=== PATIENT | male | born 1970 | race Caucasian/White ===

== ENCOUNTER 2021-09-27 14:01 | Inpatient (IN) | payer OTHER ==
[~2021-09-27] VITALS: Ht 167.6 cm; Wt 84.8 kg
[2021-09-27 14:27] VITALS: BP_SYST 139
--- NOTE | 2021-09-27 14:33 | NUR ---
PLACED IN BED 4
--- NOTE | 2021-09-27 14:40 | NUR ---
PT BIB BROTHER C/O ABD DISTENTION STARTING THIS MORNING. PT REPORTS RECENTLY STARTING DIALYSIS AND HAS ACCESS TO RIGHT UPPER CHEST. PT DESCRIBES FEELING UNCOMFORTABLE WITH FULLNESS BUT DENIES PAIN. PT IS AMBULATORY, AAOX4, V/S STABLE
--- NOTE | 2021-09-27 14:50 | NUR ---
ER DR. JACKSON AT THE BEDSIDE
[2021-09-27] MEDS ORDERED: FUROSEMIDE 40 MG/4 ML VIAL IVP ONE (15:00)
--- NOTE | 2021-09-27 15:02 | NUR ---
# 20 gauge angiocath placed to LAC. Use of asceptic technique. Opsite placed over site. Blood return noted. Blood for lab drawn from site. Flushed with 10 cc of normal saline. No evidence of infiltration noted. Patient tolerated well.
[2021-09-27 15:20] LABS: BASOPHILS # (AUTO) 0.1 K/uL (0.0-0.2); BASOPHILS % (AUTO) 0.9 % (0.0-2.0); EOSINOPHILS # (AUTO) 0.3 K/uL (0.0-0.4); EOSINOPHILS % (AUTO) 4.3 % (0.0-4.0); HEMATOCRIT 25.1 % (36-54); HEMOGLOBIN 8.5 g/dL (14.0-18.0); LYMPHOCYTES # (AUTO) 0.9 K/uL (1.0-5.5); LYMPHOCYTES % (AUTO) 13.3 % (20.5-51.5); MEAN CORPUSCULAR HEMOGLOBIN 30 pg (27-31); MEAN CORPUSCULAR HGB CONC 34 % (32-36); MEAN CORPUSCULAR VOLUME 88 fL (79.0-98.0); MONOCYTES # (AUTO) 0.8 K/uL (0.0-1.0); MONOCYTES % (AUTO) 12.3 % (1.7-9.3); NEUTROPHILS # (AUTO) 4.7 K/uL (1.8-7.7); NEUTROPHILS % (AUTO) 69.2 % (40.0-70.0); PLATELET COUNT (AUTO) 310 K/uL (130-430); RED BLOOD CELL COUNT(AUTO) 2.86 MIL/uL (4.2-6.2); RED CELL DISTRIBUTION WIDTH 14.4 % (9.0-15.0); WHITE BLOOD COUNT (AUTO) 6.8 K/uL (4.8-10.8)
[2021-09-27 15:40] LABS: CALCIUM 8.1 mg/dL (8.4-11.0); CREATININE 4.01 mg/dL (0.55-1.30); POTASSIUM 4.4 mmol/L (3.5-5.1)
[2021-09-27 15:46] LABS: ALBUMIN 2.4 g/dL (3.4-4.8); TOTAL BILIRUBIN 0.2 mg/dL (0.0-1.0)
[2021-09-27] MEDS ORDERED: ALBUMIN HUMAN 25% 50 ML IV ONE (16:15)
[2021-09-27 16:23] LABS: INR 1.1 (0.80-1.20); PROTHROMBIN TIME 11.5 SECS (9.5-12.5)
--- NOTE | 2021-09-27 16:41 | NUR ---
CONSENT SIGNED FOR MEDICAL RECORDS FROM [facility]
[2021-09-27] MEDS ORDERED: ONDANSETRON HCL 4 MG/2 ML VIAL IVP PRN (17:30)
[2021-09-27] MEDS ORDERED: HYDR-4039 PO (17:40)
[2021-09-27] MEDS ORDERED: CARV25TA55 PO (17:40)
[2021-09-27] MEDS ORDERED: FOLI0.8T42 PO (17:40)
[2021-09-27] MEDS ORDERED: NIFE60TA83 PO (17:40)
--- NOTE | 2021-09-27 17:41 | NUR ---
Medication reconciliation completed with information provided by PT. Any prior medication reconciliation on file was reviewed and corrected.
--- NOTE | 2021-09-27 18:05 | NUR ---
PT PROVIDED WITH URINAL, STATES HE CANNOT VOID AT THIS TIME, WILL CONTINUE TO ENCOURAGE
--- NOTE | 2021-09-27 18:10 | NUR ---
ULTRASOUND AT THE BEDSIDE
--- NOTE | 2021-09-27 18:23 | NUR ---
DINNER TRAY PROVIDED TO PT
--- NOTE | 2021-09-27 19:35 | NUR ---
Patient will be admitted to care of JAYA. Admitted to MS unit. Will go to room 108B. Belongings list completed. Complete and up to date summary report printed. SBAR report to be given at bedside with opportunity for questions.
[2021-09-27 19:58] VITALS: BP_SYST 147
--- NOTE | 2021-09-28 | NUR ---
ADMISSION: The patient, KELECHI CHRISTIANSON, 51 y/o, M admitted by [facility] MD, was given written information regarding hospital policies, unit procedures and contact persons. Valuables were checked and procedures explained SAFETY MEASURES IMPLEMENTED ALSO CALL TORRES GIVEN TO Patient / .
[2021-09-28 00:40] VITALS: BP_SYST 145
--- NOTE | 2021-09-28 02:26 | NUR ---
Consultation Paged Reason for Consultation: ANASARCA Was consult called: Y Person who was notified: Shanti Consulting Physician: Yamel Henson Ordering Physician: Dr. August
--- NOTE | 2021-09-28 02:37 | NUR ---
MRSA of NARES collected & sent to Lab .
[2021-09-28 06:45] LABS: BASOPHILS # (AUTO) 0.1 K/uL (0.0-0.2); BASOPHILS % (AUTO) 1.3 % (0.0-2.0); EOSINOPHILS # (AUTO) 0.3 K/uL (0.0-0.4); EOSINOPHILS % (AUTO) 4.1 % (0.0-4.0); HEMOGLOBIN 8.2 g/dL (14.0-18.0); LYMPHOCYTES # (AUTO) 0.9 K/uL (1.0-5.5); LYMPHOCYTES % (AUTO) 12.1 % (20.5-51.5); MEAN CORPUSCULAR HEMOGLOBIN 30 pg (27-31); MEAN CORPUSCULAR HGB CONC 34 % (32-36); MEAN CORPUSCULAR VOLUME 88 fL (79.0-98.0); MONOCYTES # (AUTO) 0.8 K/uL (0.0-1.0); MONOCYTES % (AUTO) 10.6 % (1.7-9.3); NEUTROPHILS # (AUTO) 5.3 K/uL (1.8-7.7); NEUTROPHILS % (AUTO) 71.9 % (40.0-70.0); PLATELET COUNT (AUTO) 308 K/uL (130-430); RED BLOOD CELL COUNT(AUTO) 2.73 MIL/uL (4.2-6.2); RED CELL DISTRIBUTION WIDTH 14.2 % (9.0-15.0); WHITE BLOOD COUNT (AUTO) 7.4 K/uL (4.8-10.8)
--- NOTE | 2021-09-28 07:20 | NUR ---
rn opening note report was endorsed by night nurse. patient appears to be resting with both eyes closed no signs of any distress, breathing is equal and non labored. all safety precautions in place.
[2021-09-28 07:32] LABS: ALBUMIN 2.3 g/dL (3.4-4.8); CALCIUM 8.3 mg/dL (8.4-11.0); CREATININE 4.54 mg/dL (0.55-1.30); POTASSIUM 4.1 mmol/L (3.5-5.1); TOTAL BILIRUBIN 0.2 mg/dL (0.0-1.0)
[2021-09-28 08:00] VITALS: BP_SYST 151
--- NOTE | 2021-09-28 09:12 | NUR ---
PATIENT IS AWAKE AND ALERT SITTING IN BED, NO SIGNS OF ANY DISTRESS, BREATHING IS EQUAL AND NON LABORED. ALL SAFETY PRECAUTIONS IN PLACE. EDUCATED BODY COVERER LIGHT FOR ASSISTANCE. CALL LIGHT IS WITH PATIENT. NO OTHER NEEDS AT THIS TIME.
--- NOTE | 2021-09-28 10:30 | NUR ---
dr. garcia spoke with md received orders for hemodialysis md will call hemodialysis nurse. patient is awake and alert consent signed and in chart. patient educated solution advisor light for assistance call light is with him. patient has no complaints or need at this time.
[2021-09-28 11:28] VITALS: BP_SYST 140
--- NOTE | 2021-09-28 14:42 | NUR ---
HIGH ALERT NOTE: Called Dr. garcia back at telephone identified within the medical roster to verify physician authenticity. orders for heparin for ports for hemodialysis
[2021-09-28] MEDS ORDERED: HEPARIN SODIUM,PORCINE 5,000 UNITS/ML VIAL IVP ONE (14:45)
[2021-09-28 15:30] VITALS: BP_SYST 167
--- NOTE | 2021-09-28 15:46 | NUR ---
hemodialysis patient just finished hemodialysis 3 L removed. patient states he is tired and would like to rest. no other needs at this time. call light is with him educated to use for assistance.
--- NOTE | 2021-09-28 16:10 | NUR ---
spoke with md alejo to continue home medication, SCD for dvt prophylaxis.
[2021-09-28] MEDS: CALCIUM ACETATE 667 MG CAP PO SCH (17:28)
--- NOTE | 2021-09-28 18:21 | NUR ---
rn closing note patient is laying in bed, no complaints at this time. patient has call light with him educated to use for assistance. Patient shows no signs of any distress. no other needs a this time.
--- NOTE | 2021-09-28 19:00 | NUR ---
PATIENT RECEIVED IN BED ALERT AND ORIENTED X4. FALL AND SAFETY INTERVENTIONS MAINTAINED. PATIENT EDUCATED TO MEDICAL PLAN OF CARE. FALL AND SAFETY INTERVENTIONS, MEDICATION MANAGEMENT AND EDUCATIONAL NEEDS. MEDICAL DIAGNOSIS ANASARCA NOTED. EDEMA TO UPPER EXTREMITIES NOTED. PATIENT CONTINENT OF URINARY VOID WITH EDUARDO URINE IN URINAL AT BEDSIDE. RIGHT CHEST EVON CATH NOTED. DIALYSIS SCHEDULED IN AM. PATIENT RECEPTIVE TO FALL AND SAFETY INTERVENTIONS, MEDICAL MANAGEMENT AND RN PLAN OF CARE.
[2021-09-28] MEDS: hydrALAZINE HCL 25 MG TABLET PO SCH (21:05)
[2021-09-28] MEDS: HYDROcodone/ACETAMIN 5-325 MG TAB (NORCO/ VICODIN) PO PRN (21:07)
[2021-09-29] VITALS (9 sets, daily range): BP systolic 141–200
[2021-09-29] MEDS ORDERED: hydrALAZINE HCL 20 MG/ML VIAL IVP ONE ×2 (02:45)
[2021-09-29] MEDS: CALCIUM ACETATE 667 MG CAP PO SCH ×3 (08:33→17:55)
[2021-09-29] MEDS: hydrALAZINE HCL 25 MG TABLET PO SCH ×2 (08:33→21:11)
[2021-09-29] MEDS: CARVEDILOL 25 MG TABLET (COREG) PO SCH (08:33)
[2021-09-29] MEDS: NEPHROVITE, (FOLIC ACID/VITAMIN B COMP W-C 1 TAB) PO SCH (08:33)
[2021-09-29] MEDS: NIFEdipine 30 MG TAB.ER.24 PO SCH (08:34)
[2021-09-29] MEDS ORDERED: amLODIPine BESYLATE 5 MG TABLET PO SCH (09:00)
[2021-09-29] MEDS ORDERED: NEPHROVITE, (FOLIC ACID/VITAMIN B COMP W-C 1 TAB) PO SCH (09:00)
--- NOTE | 2021-09-29 14:00 | NUR ---
0720AM: PATIENT IS RESTING IN BED QUIETLY. NO ADDITIONAL DISTRESS NOTED. BED IN LOW AND LOCK POSITION. BED ALARM ON. CALL LIGHT WITHIN REACH. STABLE CONDITION. WILL CONT TO MONITOR. 0800AM: EXPLAINED PLAN OF CARE AND PATIENT VERBALIZED UNDERSTANDING. WILL CONT TO MONITOR. 0900AM: TOILETRIES GIVEN TO PATIENT TO BRUSH HIS TEETH AND WASHED HIS FACE. PATIENT IS ABLE TO DO SELF CARE IN THE BED. 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 WILL CONT TO MONITOR. 1200PM: PATIENT IS RESTING IN BED EATING HIS LUNCH. STABLE AT THIS TIME. WILL CONT TO MONITOR. 1400: PATIENT IS RESTING IN BED ASLEEP. WILL CONT TO MONITOR.
--- NOTE | 2021-09-29 14:52 | NUR ---
Dietitian Recommendations * Renal, CCHO, gluten-free, lactose-free diet * FRAN provided renal/diabetic MNT LP, RD Please refer to Nutrition Assessment for details. Addendum: 09/29/21 at [address] Amended: Links added.
--- NOTE | 2021-09-29 18:00 | NUR ---
1600: PATIENT IS RESTING IN BED TALKING ON THE PHONE WITH HIS FAMILY. MADE AWARE TO PATIENT THAT HD WILL BE DONE TOMORROW INSTEAD OF TODAY. NO CHANGE FROM PREVIOUS ASSESSMENT. WILL CONT TO MONITOR. 1800: PATIENT IS RESTING IN BED LISTENING TO THE NEWS AND EATING HIS DINNER. WILL CONT TO MONITOR.
--- NOTE | 2021-09-29 18:50 | NUR ---
PATIENT IS RESTING IN BED WATCHING TV. NO ADDITIONAL DISTRESS. STABLE CONDITION THROUGHOUT THE SHIFT. WILL CONT TO MONITOR.
[2021-09-30 01:21] VITALS: BP_SYST 142
[2021-09-30 04:00] VITALS: BP_SYST 138
[2021-09-30 08:00] VITALS: BP_SYST 156
[2021-09-30] MEDS: CALCIUM ACETATE 667 MG CAP PO SCH ×3 (10:05→18:58)
[2021-09-30] MEDS: NEPHROVITE, (FOLIC ACID/VITAMIN B COMP W-C 1 TAB) PO SCH (10:05)
[2021-09-30] MEDS: CARVEDILOL 25 MG TABLET (COREG) PO SCH (10:06)
[2021-09-30 12:34] VITALS: BP_SYST 159
[2021-09-30] MEDS: NIFEdipine 30 MG TAB.ER.24 PO SCH (13:07)
[2021-09-30] MEDS: hydrALAZINE HCL 25 MG TABLET PO SCH ×2 (13:07→20:13)
[2021-09-30 16:53] VITALS: BP_SYST 150
[2021-09-30] MEDS ORDERED: EPOETIN ALFA-EPBX 10,000 UNITS/ML VIAL SUBCUT SCH (17:00)
--- NOTE | 2021-09-30 18:30 | NUR ---
0710AM: PATIENT IS RESTING IN BED QUIETLY. NO ADDITIONAL DISTRESS NOTED. BED IN LOW AND LOCK POSITION. BED ALARM ON. CALL LIGHT WITHIN REACH. STABLE CONDITION. WILL CONT TO MONITOR. 0800AM: EXPLAINED PLAN OF CARE AND PATIENT VERBALIZED UNDERSTANDING. HD WILL BE DONE TODAY. WILL CONT TO MONITOR. 0900AM: TOILETRIES GIVEN TO PATIENT TO BRUSH HIS TEETH AND WASHED HIS FACE. GOWN ALSO CHANGED. PATIENT IS ABLE TO DO SELF CARE IN THE BED. 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 WILL CONT TO MONITOR. 1200PM: PATIENT IS RESTING IN BED EATING HIS LUNCH. STABLE AT THIS TIME. WILL CONT TO MONITOR. 1400: PATIENT IS RESTING IN BED ASLEEP. WILL CONT TO MONITOR. 1600: PATIENT IS RESTING IN BED TALKING IN THE PHONE WITH HIS FRIEND. NO ADDITIONAL DISTRESS NOTED. 1800: PATIENT IS RESTING IN BED EATING HIS DINNER. WILL CONT TO MONITOR. 1830: NO CHANGE FROM PREVIOUS ASSESSMENT. STABLE CONDITION THROUGHOUT THE SHIFT. NO ADDITIONAL DISTRESS NOTED. WILL CONT TO MONITOR.
--- NOTE | 2021-09-30 19:15 | NUR ---
OPENING NOTE REPORT RECEIVED FROM DAYSHIFT NURSE. PATIENT RECEIVED LYING IN BED, AWAKE, NO S/S OF ACUTE DISTRESS. BREATHING IS EVEN AND UNLABORED. IV SITE IS PATENT, NO SIGNS OF INFILTRATION OR INFECTION NOTED. CALL LIGHT WITH PATIENT. BED IS LOCKED AND AT LOWEST POSITION. WILL CONTINUE TO MONITOR.
[2021-09-30] MEDS: HYDROcodone/ACETAMIN 5-325 MG TAB (NORCO/ VICODIN) PO PRN (19:56)
[2021-09-30 20:00] VITALS: BP_SYST 152
--- NOTE | 2021-09-30 21:30 | NUR ---
DIALYSIS PATIENT IN BED, RECEIVING DIALYSIS. TOLERATING WELL. CALL LIGHT WITH PATIENT. WILL CONTINUE TO MONITOR.
[2021-09-30] MEDS ORDERED: HEPARIN SODIUM,PORCINE 5,000 UNITS/ML VIAL IVP ONE ×2 (23:00)
[2021-10-01] VITALS: BP_SYST 148
--- NOTE | 2021-10-01 01:42 | NUR ---
ROUNDS PATIENT IN BED, ASLEEP. NO SIGNS OF DISCOMFORT. CALL LIGHT WITH PATIENT. WILL CONTINUE TO MONITOR.
--- NOTE | 2021-10-01 06:27 | NUR ---
ROUNDS PATIENT IN BED, AWAKE, WATCHING TV, NO S/S OF ACUTE DISTRESS NOTED. BREATHING EVEN AND UNLABORED. IV SITE IS PATENT, NO SIGNS OF INFILTRATION OR INFECTION NOTED. ALL NEEDS MET THROUGHOUT SHIFT. FALL, SAFETY PRECAUTIONS MAINTAINED THROUGHOUT SHIFT. WILL CONTINUE TO MONITOR UNTIL PATIENT CARE IS ENDORSED TO ONCOMING DAYSHIFT NURSE.
[2021-10-01 08:00] VITALS: BP_SYST 130
[2021-10-01] MEDS: CALCIUM ACETATE 667 MG CAP PO SCH ×2 (08:37→12:38)
[2021-10-01] MEDS: NEPHROVITE, (FOLIC ACID/VITAMIN B COMP W-C 1 TAB) PO SCH (08:38)
[2021-10-01] MEDS: NIFEdipine 30 MG TAB.ER.24 PO SCH (08:50)
[2021-10-01] MEDS: CARVEDILOL 25 MG TABLET (COREG) PO SCH (08:50)
[2021-10-01] MEDS: hydrALAZINE HCL 25 MG TABLET PO SCH (08:50)
[2021-10-01] MEDS ORDERED: PHO667 PO (09:45)
[2021-10-01 10:26] VITALS: BP_SYST 130
[2021-10-01 12:37] VITALS: BP_SYST 148
--- NOTE | 2021-10-01 15:30 | NUR ---
SHIFT NOTES 0720AM: PATIENT IS RESTING IN BED QUIETLY. NO ADDITIONAL DISTRESS NOTED. BED IN LOW AND LOCK POSITION. BED ALARM ON. CALL LIGHT WITHIN REACH. STABLE CONDITION. WILL CONT TO MONITOR. 0800AM: EXPLAINED PLAN OF CARE AND PATIENT VERBALIZED UNDERSTANDING. HD WILL BE DONE TODAY. WILL CONT TO MONITOR. 0900AM: TOILETRIES GIVEN TO PATIENT TO BRUSH HIS TEETH AND WASHED HIS FACE. PATIENT IS ABLE TO DO SELF CARE IN THE BED. 1000AM: PATIENT IS RESTING IN BED TALKING IN THE PHONE WITH HIS FRIED. WILL CONT TO MONITOR. 1030AM: MADE AWARE TO PATIENT THAT HE IS BEING DC TODAY. PER PATIENT, HIS PARENTS WILL PICK HIM UP. PATIENT WILL CALL HIS PARENTS. 1100AM: PER PATIENT, HIS PARENTS WILL PICK HIM UP AT 1500 TODAY. 1200PM: DC INSTRUCTION GIVEN AND EXPLAINED. PATIENT VERBALIZED UNDERSTANDING. STABLE AT THIS TIME. WILL CONT TO MONITOR. 1400: PATIENT IS RESTING IN BED ASLEEP. WILL CONT TO MONITOR. 1500: PATIENT IS CHANGING HIS CLOTHES. HIS FRIEND IS AT THE BEDSIDE. WILL CONT TO MONITOR. 1515: FRIENDS LEFT THE UNIT. 1520: PARENTS IS OUTSIDE THE FACILITY. IV REMOVED FROM THE LAC. IV CATH INTACT WHEN REMOVED. NO BLEEDING NOTED. COVER SITE WITH BAND-AID. 1530: PATIENT LEFT THE FACILITY IN A STABLE CONDITION. WHEELED OUT BY PRIMARY NURSE. ALL PERSONAL BELONGINGS GIVEN TO PATIENT AND DENIES MISSING ITEMS. NO ADDITIONAL DISTRESS NOTED.
== END 2021-10-01 15:35 | disposition home or self-care (01) | DRG 640 ==
LOC: SED 14:01 → SMU 17:24
PROVIDERS: ADMIT Internal Medicine Hospice and Palliative Medicine; ATTEND Internal Medicine Hospice and Palliative Medicine
PROC: 5A1D70Z Performance of Urinary Filtration, Intermittent, Less than 6 Hours Per Day (ICD-10-PCS; principal; 2021-09-28)
PROC: 5A1D70Z Performance of Urinary Filtration, Intermittent, Less than 6 Hours Per Day (ICD-10-PCS; 2021-09-29)
DX: E87.70 Fluid overload, unspecified (principal); N18.6 End stage renal disease; J81.1 Chronic pulmonary edema; I12.0 Hypertensive chronic kidney disease with stage 5 chronic kidney disease or end stage renal disease; E11.21 Type 2 diabetes mellitus with diabetic nephropathy; E11.22 Type 2 diabetes mellitus with diabetic chronic kidney disease; Z99.2 Dependence on renal dialysis; Z91.012 Allergy to eggs; Z91.018 Allergy to other foods; Z91.09 Other allergy status, other than to drugs and biological substances; Z91.013 Allergy to seafood
CPT/HCPCS: 36415; 71045; 76604; 76700-TC; 80053; 83880; 84484; 85025; 85610-TC; 87081; 93005; 96365; 96375; 99285; J0360; J1644; J1940; P9046; Q5106

== ENCOUNTER 2022-06-02 20:59 | Emergency (ER) | payer BC, OTHER ==
[~2022-06-02] VITALS: Ht 167.6 cm; Wt 68.0 kg
[~2022-06-02 20:59] MED LIST: CARV25TA55 PO; FOLI0.8T42 PO; HYDR-4039 PO; NIFE60TA83 PO; PHO667 PO
[2022-06-02 21:11] VITALS: BP_SYST 238
--- NOTE | 2022-06-02 21:11 | NUR ---
Placed in room 07 . Placed on monitor and storage bin tender, blood pressure machine and pulse oximeter. To gown for exam. Side rails up.
[2022-06-02] MEDS ORDERED: cloNIDine HCL 0.1 MG TABLET PO ONE (21:30)
[2022-06-02] MEDS ORDERED: NITROGLYCERIN 0.4 MG TAB.SUBL SL ONE (21:30)
--- NOTE | 2022-06-02 21:35 | NUR ---
Pt to bed 7 from dialysis w/ c/o HTN. Pt receives dialysis Tuesday, , Tuesday, but missed yesterday's appointment so went today instead. Pt denies N/V, pt denies CANTRELL or dizziness. Respirations even and unlabored. Mild skin pallor.
--- NOTE | 2022-06-02 21:50 | NUR ---
MD at bedside speaking with patient regarding plan of care.
[2022-06-02 22:00] LABS: BASOPHILS % (AUTO) 0.3 % (0.0-2.0); EOSINOPHILS # (AUTO) 0.1 K/uL (0.0-0.4); EOSINOPHILS % (AUTO) 1.7 % (0.0-4.0); HEMATOCRIT 31.9 % (36-54); LYMPHOCYTES # (AUTO) 0.6 K/uL (1.0-5.5); MEAN CORPUSCULAR HEMOGLOBIN 33 pg (27-31); MEAN CORPUSCULAR HGB CONC 34 % (32-36); MEAN CORPUSCULAR VOLUME 95 fL (79.0-98.0); MONOCYTES # (AUTO) 0.2 K/uL (0.0-1.0); MONOCYTES % (AUTO) 3.3 % (1.7-9.3); NEUTROPHILS # (AUTO) 4.8 K/uL (1.8-7.7); NEUTROPHILS % (AUTO) 83.7 % (40.0-70.0); PLATELET COUNT (AUTO) 208 K/uL (130-430); RED BLOOD CELL COUNT(AUTO) 3.36 MIL/uL (4.2-6.2); RED CELL DISTRIBUTION WIDTH 14.2 % (9.0-15.0); WHITE BLOOD COUNT (AUTO) 5.8 K/uL (4.8-10.8)
[2022-06-02 22:20] LABS: ANION GAP 5 (5-15); CALCIUM 8.5 mg/dL (8.4-11.0); CHLORIDE 98 mmol/L (98-107); CREATININE 6.32 mg/dL (0.55-1.30); GLUCOSE 130 mg/dL (70-99); POTASSIUM 4.6 mmol/L (3.5-5.1); SODIUM SERUM 134 mmol/L (136-145); UREA NITROGEN, BLOOD 36 mg/dL (8-21)
--- NOTE | 2022-06-02 22:25 | NUR ---
# 22 gauge angiocath placed to left forearm. Use of asceptic technique. Opsite placed over site. Blood return noted. Flushed with 10 cc of normal saline. No evidence of infiltration noted. Patient tolerated well.
--- NOTE | 2022-06-02 22:26 | NUR ---
MD made aware HTN remains unresolved s/p clonidine and nitro.
[2022-06-02 22:28] LABS: ALANINE AMINOTRANSFERASE 46 U/L (12-78); ALBUMIN 3.3 g/dL (3.4-4.8); ASPARTATE AMINOTRANSFERASE 28 U/L (10-37); TOTAL BILIRUBIN 0.4 mg/dL (0.0-1.0)
[2022-06-02] MEDS ORDERED: hydrALAZINE HCL 20 MG/ML VIAL IVP ONE (22:30)
[2022-06-02 22:31] LABS: GFR AFRICAN AMERICAN 12 mL/min (>90)
[2022-06-02] MEDS ORDERED: hydrALAZINE HCL 20 MG/ML VIAL ONE (22:32)
[2022-06-02 22:53] LABS: INR 1.1 (0.80-1.20); PROTHROMBIN TIME 11.4 SECS (9.5-12.5)
--- NOTE | 2022-06-02 23:45 | NUR ---
Patient calling family for ride home.
--- NOTE | 2022-06-02 23:47 | NUR ---
MD aware of BP prior to discharge
--- NOTE | 2022-06-02 23:47 | NUR ---
Patient given written and verbal discharge instructions and verbalizes understanding. ER MD discussed with patient the results and treatment provided. Patient in stable condition. ID arm band removed. . Patient educated on pain management and to follow up with PMD. Pain Scale 0/10. Opportunity for questions provided and answered.
[2022-06-02 23:48] VITALS: BP_SYST 187
[2022-06-03] MEDS ORDERED: DOCU-144 PO (18:12)
[2022-06-03] MEDS ORDERED: LORA10TA7 PO (18:14)
[2022-06-03] MEDS ORDERED: FOLI0.8T42 PO (18:14)
[2022-06-03] MEDS ORDERED: FURO-150 PO (18:15)
== END 2022-06-02 23:48 | disposition home or self-care (01) ==
LOC: SED 20:59
DX: I10 Essential (primary) hypertension (principal); R06.02 Shortness of breath; E11.22 Type 2 diabetes mellitus with diabetic chronic kidney disease; N18.6 End stage renal disease; Z91.012 Allergy to eggs; Z91.011 Allergy to milk products; Z91.018 Allergy to other foods; Z91.010 Allergy to peanuts; Z79.899 Other long term (current) drug therapy
CPT/HCPCS: 99285; 96374; 71045; 80053; 83880; 85025; 85610; 85730; 84484; 36415; 93005; J0360

== ENCOUNTER 2022-06-03 12:33 | Inpatient (IN) | payer BC ==
[~2022-06-03] VITALS: Ht 167.6 cm; Wt 66.7 kg
--- NOTE | 2022-06-03 12:48 | NUR ---
technology instructor drawing blood.
[2022-06-03 12:55] VITALS: BP_SYST 151
--- NOTE | 2022-06-03 13:00 | NUR ---
Triaged pt and placed in waiting room until bed becomes available. Pt c/o waking up this morning with dizziness, nausea, chest tightness, and dry mouth. No chest pain and no sob. No vomiting and no diarrhea. No allergies to medications. Has hx of DM, HTN, and Renal Failure. Pt has dialysis on [facility]. Last dialysis treatment was yesterday and 4L was removed. Has a catheter on right upper chest. Skin intact. VSS. A&Ox4. Ambulatory with steady gait.
[2022-06-03 13:03] LABS: BASOPHILS % (AUTO) 0.7 % (0.0-2.0); EOSINOPHILS # (AUTO) 0.2 K/uL (0.0-0.4); EOSINOPHILS % (AUTO) 4.5 % (0.0-4.0); HEMATOCRIT 34.1 % (36-54); HEMOGLOBIN 11.5 g/dL (14.0-18.0); LYMPHOCYTES # (AUTO) 0.6 K/uL (1.0-5.5); MEAN CORPUSCULAR HEMOGLOBIN 32 pg (27-31); MEAN CORPUSCULAR HGB CONC 34 % (32-36); MEAN CORPUSCULAR VOLUME 96 fL (79.0-98.0); MONOCYTES # (AUTO) 0.4 K/uL (0.0-1.0); MONOCYTES % (AUTO) 8.3 % (1.7-9.3); NEUTROPHILS # (AUTO) 3.7 K/uL (1.8-7.7); NEUTROPHILS % (AUTO) 74.5 % (40.0-70.0); PLATELET COUNT (AUTO) 216 K/uL (130-430); RED BLOOD CELL COUNT(AUTO) 3.56 MIL/uL (4.2-6.2); RED CELL DISTRIBUTION WIDTH 14.3 % (9.0-15.0); WHITE BLOOD COUNT (AUTO) 4.9 K/uL (4.8-10.8)
[2022-06-03 13:20] LABS: ALBUMIN 3.5 g/dL (3.4-4.8); CALCIUM 8.8 mg/dL (8.4-11.0); TOTAL BILIRUBIN 0.4 mg/dL (0.0-1.0)
[2022-06-03 13:25] LABS: CREATININE 7.84 mg/dL (0.55-1.30)
--- NOTE | 2022-06-03 13:26 | NUR ---
Critical lab value called with results of Creatinine 7.84. Dr. Montez made aware.
[2022-06-03 13:34] LABS: POTASSIUM 5.8 mmol/L (3.5-5.1)
[2022-06-03] MEDS ORDERED: INSULIN REGULAR, HUMAN 10 UNITS/0.1 ML INJ IVP ONE (14:00)
[2022-06-03] MEDS ORDERED: ALBUTEROL SULFATE 0.083% 2.5 MG/3 ML VIAL.NEB INH ONE (14:00)
--- NOTE | 2022-06-03 14:12 | NUR ---
Notified ED Admitting regarding Dr. Montez's request for admission/transfer. Per Drr. Montez, pt is stable for transfer. Will contact insurance verifier regarding this matter.
--- NOTE | 2022-06-03 14:20 | NUR ---
RT at bedside.
--- NOTE | 2022-06-03 14:25 | NUR ---
Patient resting comfortably in bed with side rails raised. NAD noted at this time. Will continue to monitor.
[2022-06-03] MEDS ORDERED: FUROSEMIDE 40 MG/4 ML VIAL IVP ONE (14:30)
--- NOTE | 2022-06-03 14:59 | NUR ---
# 20 gauge angiocath placed to left forearm. Use of asceptic technique. Opsite placed over site. Blood return noted. Flushed with 10 cc of normal saline. No evidence of infiltration noted. Patient tolerated well.
--- NOTE | 2022-06-03 16:30 | NUR ---
Patient resting comfortably in bed with side rails raised. VSS. Nad noted at this time. Will continue to monitor.
--- NOTE | 2022-06-03 17:51 | NUR ---
I WAS ORDERED BY NEPHRO MD LOPEZ TO CALL JORGE, HD NURSE FOR STAT DIALYSIS. INFORMED DANETTE THAT I DID CALL JORGE FOLLOWING DR LOPEZ ORDER.
--- NOTE | 2022-06-03 17:51 | NUR ---
CONSULTATION PAGED/CALLED Reason for Consultation: [] RENAL FAILURE Person Who was Notified: [] DR LOPEZ Consulting Physician: [] DR LOPEZ Basin Cleaner Specialty: [] NEPHROLOGY Ordering Physician: [] DR PULIDO
--- NOTE | 2022-06-03 17:59 | NUR ---
Patient will be admitted to care of QUIANA Soliz. Admitted to tele unit. Will go to room 107A. Belongings list completed. Complete and up to date summary report printed. SBAR report to be given at bedside with opportunity for questions.
[2022-06-03] MEDS ORDERED: DOCU-144 PO (18:12)
[2022-06-03] MEDS ORDERED: FOLI0.8T42 PO (18:14)
[2022-06-03] MEDS ORDERED: LORA10TA7 PO (18:14)
[2022-06-03] MEDS ORDERED: FURO-150 PO (18:15)
[2022-06-03 18:17] VITALS: BP_SYST 168
--- NOTE | 2022-06-03 19:15 | NUR ---
OPENING NOTE PT SITING IN BED EATING DINNER. NO APPARENT SIGNS OF DISTRESS NOTED AT THIS TIME. BED IS IN LOWEST POSITION WITH FALL AND SAFETY PRECAUTIONS IN PLACE.
--- NOTE | 2022-06-03 19:31 | NUR ---
1745: PATIENT ADMITTED FROM ER, AWAKE, ALERT, ORIENTED X 4 TO NAME, PERSON, PLACE, AND TIME. RESPIRATION EVEN AND UNLABORED NO S/S OF ANY ACUTE DISTRESS NOTED. ABLE TO VERBALIZE NEED NO C/O ANY PAIN OR DISCOMFORT NOTED. ABDOMEN SOFT AND NON-DISTENDED, POSITIVE BOWEL SOUND X 4 NO N/V OR DIARRHEA NOTED. TUNNEL PERMACATH RIGHT IJ. SCHEDULE FOR HD JORGE CHRISTOPHER WAS CALLED
[2022-06-03 20:00] VITALS: BP_SYST 147
[2022-06-03] MEDS ORDERED: HEPARIN SODIUM,PORCINE 5,000 UNITS/ML VIAL ONE (22:03)
[2022-06-04 00:20] VITALS: BP_SYST 155
--- NOTE | 2022-06-04 07:25 | NUR ---
OPENING NOTE Received SBAR from night RN. Pt in bed. respiration even, unlabored, and regular. Bed is low and locked. Pt denies any pain/discomfort at this time. Call light within reach.
--- NOTE | 2022-06-04 07:51 | NUR ---
ATTENDING MD DR Satnider PULIDO WAS PAGED, RE: HIGH BP.
[2022-06-04 08:00] VITALS: BP_SYST 147; BP_SYST 208
--- NOTE | 2022-06-04 08:01 | NUR ---
SPOKE WITH DR PULIDO REGARDING INCREASED BP. NEW ORDERS RECEIVED Addendum: 06/04/22 at 0805 by Rehana Russell RN informed Dr Pulido that patient had taken his home medications at -730 nifedipine 60 mg ER and Apresoline 50 mg.
[2022-06-04] MEDS: cloNIDine HCL 0.1 MG TABLET PO PRN ×2 (08:50→21:59)
[2022-06-04] MEDS ORDERED: NALOXONE HCL 0.4 MG/ML AMP (NARCAN) IVP PRN ×2 (09:30)
[2022-06-04] MEDS ORDERED: HYDROcodone/ACETAMIN 5-325 MG TAB (NORCO/ VICODIN) PO PRN (09:30)
[2022-06-04] MEDS ORDERED: LORazepam 2 MG/ML VIAL IVP PRN (09:30)
[2022-06-04] MEDS ORDERED: ACETAMINOPHEN 325 MG TABLET PO PRN (09:30)
[2022-06-04] MEDS ORDERED: HYDROcodone/ACETAMIN 10-325 MG TAB PO PRN (09:30)
[2022-06-04] MEDS ORDERED: ONDANSETRON HCL 4 MG/2 ML VIAL IVP PRN (09:30)
--- NOTE | 2022-06-04 10:06 | NUR ---
CONSULTATION PAGED/CALLED Reason for Consultation: []chest pain Person Who was Notified: []Amber Consulting Physician: [] Dr. Lafleur Live Games Dealer Specialty: []Cardio Ordering Physician: []Dr. Trevino.A
[2022-06-04 10:29] LABS: BASOPHILS % (AUTO) 0.5 % (0.0-2.0); EOSINOPHILS # (AUTO) 0.1 K/uL (0.0-0.4); EOSINOPHILS % (AUTO) 1.3 % (0.0-4.0); HEMATOCRIT 30.7 % (36-54); HEMOGLOBIN 10.4 g/dL (14.0-18.0); LYMPHOCYTES # (AUTO) 0.4 K/uL (1.0-5.5); MEAN CORPUSCULAR HEMOGLOBIN 32 pg (27-31); MEAN CORPUSCULAR HGB CONC 34 % (32-36); MEAN CORPUSCULAR VOLUME 95 fL (79.0-98.0); MONOCYTES # (AUTO) 0.7 K/uL (0.0-1.0); MONOCYTES % (AUTO) 8.1 % (1.7-9.3); NEUTROPHILS # (AUTO) 7.7 K/uL (1.8-7.7); NEUTROPHILS % (AUTO) 86.1 % (40.0-70.0); PLATELET COUNT (AUTO) 170 K/uL (130-430); RED BLOOD CELL COUNT(AUTO) 3.23 MIL/uL (4.2-6.2); RED CELL DISTRIBUTION WIDTH 14.1 % (9.0-15.0); WHITE BLOOD COUNT (AUTO) 8.9 K/uL (4.8-10.8)
[2022-06-04 10:42] LABS: CALCIUM 8.4 mg/dL (8.4-11.0); CREATININE 6.1 mg/dL (0.55-1.30); POTASSIUM 4.8 mmol/L (3.5-5.1)
[2022-06-04] MEDS: hydrALAZINE HCL 25 MG TABLET PO SCH ×2 (13:54→21:56)
[2022-06-04] MEDS: CALCIUM ACETATE 667 MG CAP PO SCH ×2 (13:54→17:37)
[2022-06-04] MEDS: NORMAL SALINE 5 ML DISP.SYRIN IVF SCH ×2 (13:56→21:55)
[2022-06-04] MEDS: INSULIN REGULAR, HUMAN 100 UNITS/ML, 10 ML VIAL (humuLIN R) SUBCUT PRN ×2 (13:59→20:53)
[2022-06-04] MEDS ORDERED: NORMAL SALINE 5 ML DISP.SYRIN IVF SCH (14:00)
[2022-06-04 16:00] VITALS: BP_SYST 166
--- NOTE | 2022-06-04 19:16 | NUR ---
closing note Provided SBAR to night nurse. pt in bed and locked. no complaints of pain/discomfort noted. call light within reach.
[2022-06-04 20:00] VITALS: BP_SYST 185
[2022-06-04] MEDS: CARVEDILOL 25 MG TABLET (COREG) PO SCH (20:48)
[2022-06-04] MEDS ORDERED: hydrALAZINE HCL 25 MG TABLET PO SCH (21:00)
[2022-06-04] MEDS: ACETAMINOPHEN 325 MG TABLET PO PRN (22:00)
[2022-06-05 00:35] VITALS: BP_SYST 198
--- NOTE | 2022-06-05 00:52 | NUR ---
Pt c/o tightness in the chest, pt states "more like fluid". Pt denies shortness of breath. BP re checked 198/97 HR 66. PRN BP medication given 2.5 hrs ago. Pt scheduled for HD in AM. Paged Dr. Sotelo (Dr. Foster on-call). Spoke with Dr. Foster and received order for Nitroglycerin sublingual. Will carry out.
[2022-06-05] MEDS ORDERED: NITROGLYCERIN 0.4 MG TAB.SUBL SL ONE (01:00)
--- NOTE | 2022-06-05 02:00 | NUR ---
Rounds Nitroglycerine 0.4mg given sublingual at 0131. Reassessed pt and pt states he feels better. To monitor.
--- NOTE | 2022-06-05 04:20 | NUR ---
rounds Dr. Uriel rice.
--- NOTE | 2022-06-05 06:10 | NUR ---
Closing notes Pt alert, awake, no s/s distress or discomfort noted. Pt elevated BP and scheduled BP administered. No c/o headache. Awaiting HD this AM. Call light within reach. Bed low, locked, siderails up x2. To endorse to AM nurse.
[2022-06-05] MEDS: NORMAL SALINE 5 ML DISP.SYRIN IVF SCH ×3 (06:26→22:05)
[2022-06-05] MEDS: hydrALAZINE HCL 25 MG TABLET PO SCH ×3 (06:27→22:00)
[2022-06-05 07:58] LABS: BASOPHILS # (AUTO) 0.1 K/uL (0.0-0.2); BASOPHILS % (AUTO) 0.7 % (0.0-2.0); CALCIUM 8.9 mg/dL (8.4-11.0); EOSINOPHILS # (AUTO) 0.2 K/uL (0.0-0.4); EOSINOPHILS % (AUTO) 1.9 % (0.0-4.0); HEMATOCRIT 30.7 % (36-54); HEMOGLOBIN 10.5 g/dL (14.0-18.0); LYMPHOCYTES # (AUTO) 0.8 K/uL (1.0-5.5); MEAN CORPUSCULAR HEMOGLOBIN 33 pg (27-31); MEAN CORPUSCULAR HGB CONC 34 % (32-36); MEAN CORPUSCULAR VOLUME 95 fL (79.0-98.0); MONOCYTES # (AUTO) 0.6 K/uL (0.0-1.0); MONOCYTES % (AUTO) 7.7 % (1.7-9.3); NEUTROPHILS # (AUTO) 6.5 K/uL (1.8-7.7); NEUTROPHILS % (AUTO) 79.7 % (40.0-70.0); PLATELET COUNT (AUTO) 169 K/uL (130-430); POTASSIUM 4.9 mmol/L (3.5-5.1); RED BLOOD CELL COUNT(AUTO) 3.23 MIL/uL (4.2-6.2); WHITE BLOOD COUNT (AUTO) 8.1 K/uL (4.8-10.8)
[2022-06-05 08:00] VITALS: BP_SYST 142
[2022-06-05 08:01] VITALS: BP_SYST 142
[2022-06-05 08:12] LABS: ALBUMIN 3.1 g/dL (3.4-4.8); PHOSPHORUS 4.8 mg/dL (2.7-4.5); THYROID STIMULATING HORMONE 1.44 uIu/mL (0.36-3.74); TOTAL BILIRUBIN 0.3 mg/dL (0.0-1.0)
[2022-06-05] MEDS: LORATADINE 10 MG TABLET PO SCH (08:39)
[2022-06-05] MEDS: CALCIUM ACETATE 667 MG CAP PO SCH ×3 (08:39→17:32)
[2022-06-05] MEDS: DOCUSATE SODIUM 100 MG CAPSULE PO SCH (08:40)
[2022-06-05] MEDS: FUROSEMIDE 20 MG TABLET PO SCH (08:40)
[2022-06-05] MEDS: CARVEDILOL 25 MG TABLET (COREG) PO SCH ×2 (08:40→22:00)
[2022-06-05] MEDS: NIFEdipine 30 MG TAB.ER.24 PO SCH (08:41)
[2022-06-05] MEDS: NEPHROVITE, (FOLIC ACID/VITAMIN B COMP W-C 1 TAB) PO SCH (08:41)
[2022-06-05] MEDS ORDERED: NEPHROVITE, (FOLIC ACID/VITAMIN B COMP W-C 1 TAB) PO SCH (09:00)
[2022-06-05] MEDS ORDERED: CARVEDILOL 25 MG TABLET (COREG) PO SCH (09:00)
[2022-06-05 09:29] LABS: CREATININE 7.97 mg/dL (0.55-1.30)
[2022-06-05 12:00] VITALS: BP_SYST 188
[2022-06-05 15:50] VITALS: BP_SYST 139
[2022-06-05] MEDS: INSULIN REGULAR, HUMAN 100 UNITS/ML, 10 ML VIAL (humuLIN R) SUBCUT PRN ×2 (17:14→22:07)
[2022-06-05] MEDS ORDERED: HEPARIN SODIUM, PORCINE 10,000 UNITS/ 10 ML VIAL ONE (18:19)
[2022-06-05 20:05] VITALS: BP_SYST 146
--- NOTE | 2022-06-05 21:20 | NUR ---
Hemodialysis finished 3L output, VSS.
[2022-06-06] VITALS: BP_SYST 160
[2022-06-06] MEDS: cloNIDine HCL 0.1 MG TABLET PO PRN ×2 (01:14→08:41)
[2022-06-06] MEDS: NORMAL SALINE 5 ML DISP.SYRIN IVF SCH ×3 (05:45→22:07)
[2022-06-06] MEDS: hydrALAZINE HCL 25 MG TABLET PO SCH ×3 (05:50→22:05)
--- NOTE | 2022-06-06 06:00 | NUR ---
Closing notes Pt asleep, easily awakens, no s/s distress or discomfort noted. Blood sugar checked 77. IV saline lock L. FA20G clear and patent. Call light within reach. Bed low, locked, siderails up x2. To endorse to AM nurse.
[2022-06-06 08:00] VITALS: BP_SYST 186
[2022-06-06 08:00] LABS: BASOPHILS % (AUTO) 0.5 % (0.0-2.0); EOSINOPHILS # (AUTO) 0.1 K/uL (0.0-0.4); EOSINOPHILS % (AUTO) 1.7 % (0.0-4.0); HEMATOCRIT 32.6 % (36-54); HEMOGLOBIN 11.1 g/dL (14.0-18.0); LYMPHOCYTES # (AUTO) 0.7 K/uL (1.0-5.5); LYMPHOCYTES % (AUTO) 8.8 % (20.5-51.5); MEAN CORPUSCULAR HEMOGLOBIN 32 pg (27-31); MEAN CORPUSCULAR HGB CONC 34 % (32-36); MEAN CORPUSCULAR VOLUME 95 fL (79.0-98.0); MONOCYTES # (AUTO) 0.4 K/uL (0.0-1.0); MONOCYTES % (AUTO) 4.9 % (1.7-9.3); NEUTROPHILS # (AUTO) 6.7 K/uL (1.8-7.7); NEUTROPHILS % (AUTO) 84.1 % (40.0-70.0); PLATELET COUNT (AUTO) 168 K/uL (130-430); RED BLOOD CELL COUNT(AUTO) 3.44 MIL/uL (4.2-6.2)
[2022-06-06] MEDS ORDERED: CARV25TA55 PO (08:25)
[2022-06-06] MEDS ORDERED: HYDR-4039 PO (08:25)
[2022-06-06] MEDS: NEPHROVITE, (FOLIC ACID/VITAMIN B COMP W-C 1 TAB) PO SCH (08:41)
[2022-06-06] MEDS: CALCIUM ACETATE 667 MG CAP PO SCH ×3 (08:41→17:29)
[2022-06-06] MEDS: CARVEDILOL 25 MG TABLET (COREG) PO SCH ×2 (08:41→22:06)
[2022-06-06] MEDS: NIFEdipine 30 MG TAB.ER.24 PO SCH (08:41)
[2022-06-06] MEDS: DOCUSATE SODIUM 100 MG CAPSULE PO SCH (08:41)
[2022-06-06] MEDS: FUROSEMIDE 20 MG TABLET PO SCH (08:41)
[2022-06-06] MEDS: LORATADINE 10 MG TABLET PO SCH (08:41)
[2022-06-06 09:11] LABS: CALCIUM 8.6 mg/dL (8.4-11.0); CREATININE 6.41 mg/dL (0.55-1.30); PHOSPHORUS 4.7 mg/dL (2.7-4.5)
[2022-06-06 09:46] LABS: POTASSIUM 5.2 mmol/L (3.5-5.1)
[2022-06-06 12:00] VITALS: BP_SYST 180
[2022-06-06] MEDS: INSULIN REGULAR, HUMAN 100 UNITS/ML, 10 ML VIAL (humuLIN R) SUBCUT PRN (12:50)
[2022-06-06 16:00] VITALS: BP_SYST 166
[2022-06-06] MEDS ORDERED: HEPARIN SODIUM,PORCINE 5,000 UNITS/ML VIAL ONE (19:26)
[2022-06-06 21:00] VITALS: BP_SYST 173
[2022-06-07] VITALS (8 sets, daily range): BP systolic 143–222
[2022-06-07] MEDS: cloNIDine HCL 0.1 MG TABLET PO PRN ×3 (00:12→15:43)
[2022-06-07] MEDS: NORMAL SALINE 5 ML DISP.SYRIN IVF SCH ×3 (06:50→22:00)
[2022-06-07] MEDS: hydrALAZINE HCL 25 MG TABLET PO SCH ×3 (06:50→23:34)
[2022-06-07] MEDS: CALCIUM ACETATE 667 MG CAP PO SCH ×3 (08:52→18:35)
[2022-06-07] MEDS: NEPHROVITE, (FOLIC ACID/VITAMIN B COMP W-C 1 TAB) PO SCH (08:52)
[2022-06-07] MEDS: CARVEDILOL 25 MG TABLET (COREG) PO SCH ×2 (08:53→23:33)
[2022-06-07] MEDS: FUROSEMIDE 20 MG TABLET PO SCH (08:53)
[2022-06-07] MEDS: DOCUSATE SODIUM 100 MG CAPSULE PO SCH (08:53)
[2022-06-07] MEDS: LORATADINE 10 MG TABLET PO SCH (08:53)
[2022-06-07] MEDS ORDERED: NIFEdipine PO (09:29)
[2022-06-07 10:25] LABS: BASOPHILS % (AUTO) 0.6 % (0.0-2.0); EOSINOPHILS # (AUTO) 0.2 K/uL (0.0-0.4); EOSINOPHILS % (AUTO) 3.3 % (0.0-4.0); HEMATOCRIT 31.2 % (36-54); HEMOGLOBIN 10.8 g/dL (14.0-18.0); LYMPHOCYTES # (AUTO) 0.8 K/uL (1.0-5.5); LYMPHOCYTES % (AUTO) 13.9 % (20.5-51.5); MEAN CORPUSCULAR HEMOGLOBIN 32 pg (27-31); MEAN CORPUSCULAR HGB CONC 35 % (32-36); MEAN CORPUSCULAR VOLUME 94 fL (79.0-98.0); MONOCYTES # (AUTO) 0.5 K/uL (0.0-1.0); MONOCYTES % (AUTO) 9.5 % (1.7-9.3); NEUTROPHILS # (AUTO) 4.1 K/uL (1.8-7.7); NEUTROPHILS % (AUTO) 72.7 % (40.0-70.0); PLATELET COUNT (AUTO) 168 K/uL (130-430); RED BLOOD CELL COUNT(AUTO) 3.33 MIL/uL (4.2-6.2); RED CELL DISTRIBUTION WIDTH 14.1 % (9.0-15.0); WHITE BLOOD COUNT (AUTO) 5.7 K/uL (4.8-10.8)
[2022-06-07 10:28] LABS: CALCIUM 8.3 mg/dL (8.4-11.0); CREATININE 6.38 mg/dL (0.55-1.30); PHOSPHORUS 4.9 mg/dL (2.7-4.5); POTASSIUM 4.4 mmol/L (3.5-5.1)
[2022-06-07] MEDS: INSULIN REGULAR, HUMAN 100 UNITS/ML, 10 ML VIAL (humuLIN R) SUBCUT PRN ×2 (11:57→18:08)
[2022-06-07] MEDS: NIFEdipine 30 MG TAB.ER.24 PO SCH (13:52)
[2022-06-07] MEDS ORDERED: cloNIDine HCL 0.1 MG TABLET PO ONE (17:15)
--- NOTE | 2022-06-07 19:36 | NUR ---
Patient is awake, alert and oriented to self, place time and situation. No acute distress noted at this time. patient has a discharge order, but unable to go home due to hypertensive crisis. Blood pressure is 229/96. Dr. Sarah notified. Order received to hold discharge until systolic blood pressure drops below 180. Report given to the night nurse. All questions and concern addressed. Patient updated about the current plan of care, patient verbalized understanding.
[2022-06-08 03:44] VITALS: BP_SYST 189
--- NOTE | 2022-06-08 04:30 | NUR ---
pt alert and oriented x 4. pt continues to have increased bp but trending down. pt bp 184/86 adm clonidine. pt denied pain and discomfort. pt finger stick early shift was 68 adm snack. rechecked fs pt finger stick increased to 77. pt remains stable. Pt will attend hemo dialysis in morning.
[2022-06-08] MEDS: cloNIDine HCL 0.1 MG TABLET PO PRN (04:49)
[2022-06-08 05:29] VITALS: BP_SYST 169
[2022-06-08] MEDS: NORMAL SALINE 5 ML DISP.SYRIN IVF SCH ×2 (05:32→14:08)
--- NOTE | 2022-06-08 07:30 | NUR ---
OPENING NOTE Patient sitting up in bed, alert and oriented x4. No sign of distress and patient denies pain. Patient updated on his plan of care, including discharge after dialysis this afternoon. All needs met at this time and safety checks made.
[2022-06-08 07:32] LABS: BASOPHILS % (AUTO) 0.6 % (0.0-2.0); EOSINOPHILS # (AUTO) 0.2 K/uL (0.0-0.4); EOSINOPHILS % (AUTO) 4.6 % (0.0-4.0); HEMATOCRIT 31.4 % (36-54); HEMOGLOBIN 10.9 g/dL (14.0-18.0); LYMPHOCYTES % (AUTO) 20.2 % (20.5-51.5); MEAN CORPUSCULAR HEMOGLOBIN 33 pg (27-31); MEAN CORPUSCULAR HGB CONC 35 % (32-36); MEAN CORPUSCULAR VOLUME 94 fL (79.0-98.0); MONOCYTES # (AUTO) 0.5 K/uL (0.0-1.0); MONOCYTES % (AUTO) 9.7 % (1.7-9.3); NEUTROPHILS # (AUTO) 3.2 K/uL (1.8-7.7); NEUTROPHILS % (AUTO) 64.9 % (40.0-70.0); PLATELET COUNT (AUTO) 177 K/uL (130-430); RED BLOOD CELL COUNT(AUTO) 3.36 MIL/uL (4.2-6.2); RED CELL DISTRIBUTION WIDTH 14.2 % (9.0-15.0); WHITE BLOOD COUNT (AUTO) 4.9 K/uL (4.8-10.8)
[2022-06-08 08:00] VITALS: BP_SYST 166
[2022-06-08 08:05] LABS: CALCIUM 8.4 mg/dL (8.4-11.0); PHOSPHORUS 5.3 mg/dL (2.7-4.5); POTASSIUM 4.8 mmol/L (3.5-5.1)
[2022-06-08 08:17] LABS: CREATININE 8.29 mg/dL (0.55-1.30)
[2022-06-08] MEDS: CALCIUM ACETATE 667 MG CAP PO SCH ×2 (08:43→14:08)
[2022-06-08] MEDS: DOCUSATE SODIUM 100 MG CAPSULE PO SCH (08:43)
[2022-06-08] MEDS: NEPHROVITE, (FOLIC ACID/VITAMIN B COMP W-C 1 TAB) PO SCH (08:44)
[2022-06-08] MEDS: CARVEDILOL 25 MG TABLET (COREG) PO SCH (08:44)
[2022-06-08] MEDS: LORATADINE 10 MG TABLET PO SCH (08:44)
[2022-06-08] MEDS: FUROSEMIDE 20 MG TABLET PO SCH (08:44)
[2022-06-08] MEDS: NIFEdipine 30 MG TAB.ER.24 PO SCH (08:44)
[2022-06-08] MEDS ORDERED: HEPARIN SODIUM,PORCINE 5,000 UNITS/ML VIAL MC ONE (11:45)
[2022-06-08] MEDS: INSULIN REGULAR, HUMAN 100 UNITS/ML, 10 ML VIAL (humuLIN R) SUBCUT PRN (11:59)
[2022-06-08 12:00] VITALS: BP_SYST 182
[2022-06-08] MEDS ORDERED: hydrALAZINE HCL 25 MG TABLET PO SCH (14:00)
[2022-06-08 16:00] VITALS: BP_SYST 160
[2022-06-08 16:09] VITALS: BP_SYST 160
[2022-06-08] MEDS: ACETAMINOPHEN 325 MG TABLET PO PRN (16:38)
--- NOTE | 2022-06-08 18:47 | NUR ---
D/C Patient Patient given medication reconciliation form and D/C instructions. Exit Care provided. Patient verbalized understanding. MD discussed with patient the results and treatment provided. Ambulatory with steady gait for discharge to home with family via private auto. Patient in stable condition, ID band removed. IV catheter removed, intact and dressing applied, no active bleeding. Patient educated on pain management. All belongings sent with patient.
== END 2022-06-08 18:47 | disposition home or self-care (01) | DRG 291 ==
LOC: SED 12:33 → STU 16:00 → SMU 06-04 09:30
PROVIDERS: ADMIT Preventive Medicine Preventive Medicine/Occupational Environmental Medicine; ATTEND Preventive Medicine Preventive Medicine/Occupational Environmental Medicine
PROC: 5A1D70Z Performance of Urinary Filtration, Intermittent, Less than 6 Hours Per Day (ICD-10-PCS; principal; 2022-06-03)
PROC: 5A1D70Z Performance of Urinary Filtration, Intermittent, Less than 6 Hours Per Day (ICD-10-PCS; 2022-06-05)
PROC: 5A1D70Z Performance of Urinary Filtration, Intermittent, Less than 6 Hours Per Day (ICD-10-PCS; 2022-06-06)
DX: I13.2 Hypertensive heart and chronic kidney disease with heart failure and with stage 5 chronic kidney disease, or end stage renal disease (principal); I50.33 Acute on chronic diastolic (congestive) heart failure; N18.6 End stage renal disease; E87.5 Hyperkalemia; E11.22 Type 2 diabetes mellitus with diabetic chronic kidney disease; I25.10 Atherosclerotic heart disease of native coronary artery without angina pectoris; K40.90 Unilateral inguinal hernia, without obstruction or gangrene, not specified as recurrent; Z20.822 Contact with and (suspected) exposure to COVID-19; D64.9 Anemia, unspecified; E11.21 Type 2 diabetes mellitus with diabetic nephropathy; Z99.2 Dependence on renal dialysis; I25.2 Old myocardial infarction; Z87.891 Personal history of nicotine dependence; Z79.899 Other long term (current) drug therapy; Z91.012 Allergy to eggs; Z91.018 Allergy to other foods
CPT/HCPCS: 36415; 80048; 80053; 80061; 82962; 83735; 83880; 84100; 84443; 84484; 85025; 87081; 90935; 90937; 93005; 93306; 94640; 96374; 96375; 99285; G0378; J1644; J1815; J1940; J2405; J7613

== ENCOUNTER 2022-09-28 11:27 | Observation (INO) | payer BC ==
[~2022-09-28] VITALS: Ht 167.6 cm; Wt 59.9 kg
[~2022-09-28 11:27] MED LIST changes: +CAT1PAT TD; +DOCU-144 PO; +FURO-150 PO; +LORA10TA7 PO; +NIFEdipine PO
[2022-09-28 11:39] VITALS: BP_SYST 232
--- NOTE | 2022-09-28 12:00 | NUR ---
PATIENT AMBULATORY TO ER AAOX4 PLACE IN BED 7, ON DIVISIONAL STOREKEEPER, PATIENT C/O DIARRHEA, HIGH BLOOD PRESSURE, EDP MADE AWARE
[2022-09-28] MEDS ORDERED: hydrALAZINE HCL 20 MG/ML VIAL IVP ONE (12:15)
[2022-09-28] MEDS ORDERED: NS 250 ML IV ONE (12:15)
[2022-09-28] MEDS ORDERED: DIPHENOXYLATE HCL/ATROP SULF 2.5 MG TAB PO ONE (12:30)
[2022-09-28] MEDS ORDERED: ONDANSETRON HCL 4 MG/2 ML VIAL IVP ONE (12:30)
[2022-09-28 12:32] LABS: BASOPHILS % (AUTO) 0.5 % (0.0-2.0); EOSINOPHILS # (AUTO) 0.2 K/uL (0.0-0.4); EOSINOPHILS % (AUTO) 2.8 % (0.0-4.0); HEMATOCRIT 38.9 % (36-54); HEMOGLOBIN 12.9 g/dL (14.0-18.0); LYMPHOCYTES # (AUTO) 0.7 K/uL (1.0-5.5); LYMPHOCYTES % (AUTO) 11.8 % (20.5-51.5); MEAN CORPUSCULAR HEMOGLOBIN 32 pg (27-31); MEAN CORPUSCULAR HGB CONC 33 % (32-36); MEAN CORPUSCULAR VOLUME 98 fL (79.0-98.0); MONOCYTES # (AUTO) 0.3 K/uL (0.0-1.0); MONOCYTES % (AUTO) 5.4 % (1.7-9.3); NEUTROPHILS # (AUTO) 4.7 K/uL (1.8-7.7); NEUTROPHILS % (AUTO) 79.5 % (40.0-70.0); PLATELET COUNT (AUTO) 240 K/uL (130-430); RED BLOOD CELL COUNT(AUTO) 3.97 MIL/uL (4.2-6.2); RED CELL DISTRIBUTION WIDTH 14.2 % (9.0-15.0); WHITE BLOOD COUNT (AUTO) 5.9 K/uL (4.8-10.8)
[2022-09-28 12:41] LABS: ANION GAP 2 (5-15); CALCIUM 10.1 mg/dL (8.4-11.0); CHLORIDE 101 mmol/L (98-107); GLUCOSE 175 mg/dL (70-99); UREA NITROGEN, BLOOD 67 mg/dL (8-21)
[2022-09-28 12:50] LABS: ALANINE AMINOTRANSFERASE 24 U/L (12-78); ASPARTATE AMINOTRANSFERASE 19 U/L (10-37); TOTAL BILIRUBIN 0.3 mg/dL (0.0-1.0)
[2022-09-28 12:51] LABS: GFR AFRICAN AMERICAN 8 mL/min (>90)
[2022-09-28 12:54] LABS: CREATININE 9.41 mg/dL (0.55-1.30)
--- NOTE | 2022-09-28 13:20 | NUR ---
PATIENT AMBULATORY TO ER AAOX4 PLACE IN BED 7, ON SENIOR UI DESIGNER, PATIENT C/O DIARRHEA, HIGH BLOOD PRESSURE, EDP MADE AWARE.
--- NOTE | 2022-09-28 13:24 | NUR ---
EDP SEEN PATIENT FOR INITIAL ASSESSMENT, WITH ORDER CHARBEL OUT. PATIENT MEDICATED DAWSON CONTINUE TO MONITOR.
[2022-09-28] MEDS ORDERED: CALCIUM GLUCONATE 1 GM in NS 100 ML IV ONE (13:45)
[2022-09-28] MEDS ORDERED: CALCIUM GLUCONATE 1 GM/10 ML VIAL ONE (14:40)
--- NOTE | 2022-09-28 15:15 | NUR ---
Admit bed requested Patient will be admitted to care of [Tyler ]. Admitted to [Medsurg ] unit. Diagnosis [hyperkalemia] Inpatient (Yes or No) [yes] Observation (Yes or No) No Orientation concerns or request close to nursing station (Yes or No) [yes] Covid Status [negative] On vent or bipap [n/a] Isolation requirements [n/a] Needs a sitter [n/a] From Home (Yes or if No enter name of facility) [yes] Requires Dialysis (Yes or No) [No] Med Rec Completed (Yes of No) [pending]
--- NOTE | 2022-09-28 16:59 | NUR ---
Patient will be admitted to care of DR HOSKINS . Admitted to M/S unit. Will go to room 107. Belongings list completed. Complete and up to date summary report printed. SBAR report to be given at bedside with opportunity for questions.
[2022-09-28 17:06] VITALS: BP_SYST 159
[2022-09-28 17:11] VITALS: BP_SYST 159
[2022-09-28] MEDS ORDERED: HEPARIN SODIUM,PORCINE 5,000 UNITS/ML VIAL MC ONE (19:45)
[2022-09-28 20:36] VITALS: BP_SYST 110
[2022-09-29 04:05] VITALS: BP_SYST 169
--- NOTE | 2022-09-29 04:39 | NUR ---
paged dr palomares through exchange for orders for high bp.
--- NOTE | 2022-09-29 06:00 | NUR ---
pt med rec done per dr palomares. medication put into emar
--- NOTE | 2022-09-29 07:41 | NUR ---
endorsed care to day rn. all needs meet at this time. pt currently resting in bed.
[2022-09-29 07:56] VITALS: BP_SYST 200
--- NOTE | 2022-09-29 08:01 | NUR ---
ADHESIVE BANDAGE MACHINE OPERATOR DR LOPEZ WAS CALLED, RE: HIGH BP OF 200/92.
[2022-09-29] MEDS ORDERED: hydrALAZINE HCL 25 MG TABLET PO ONE (08:15)
[2022-09-29] MEDS ORDERED: ACETAMINOPHEN 325 MG TABLET PO PRN (08:15)
[2022-09-29] MEDS: CALCIUM ACETATE 667 MG CAP PO SCH ×3 (08:20→18:18)
[2022-09-29] MEDS ORDERED: LORATADINE 10 MG TABLET PO SCH (09:00)
[2022-09-29] MEDS ORDERED: NEPHROVITE, (FOLIC ACID/VITAMIN B COMP W-C 1 TAB) PO SCH ×2 (09:00)
[2022-09-29] MEDS ORDERED: CARVEDILOL 25 MG TABLET (COREG) PO SCH (09:00)
[2022-09-29] MEDS ORDERED: DOCUSATE SODIUM 100 MG CAPSULE PO SCH (09:00)
[2022-09-29] MEDS ORDERED: NIFEDIPINE 60 MG TABLET.SA (PROCARDIA XL 60 MG) PO SCH (09:00)
[2022-09-29] MEDS ORDERED: FUROSEMIDE 20 MG TABLET PO SCH (09:00)
[2022-09-29] MEDS ORDERED: LACTULOSE 20 GM/30 ML UDC PO ONE (09:15)
[2022-09-29] MEDS ORDERED: BISACODYL 10 MG/SUPPOSITORY RC ONE (09:15)
[2022-09-29 10:50] VITALS: BP_SYST 199
[2022-09-29] MEDS ORDERED: CLON0.2T PO (10:55)
[2022-09-29] MEDS ORDERED: NIFE30TA84 PO (10:56)
[2022-09-29] MEDS ORDERED: cloNIDine HCL 0.2 MG TABLET PO ONE (11:00)
[2022-09-29] MEDS ORDERED: NIFEDIPINE 90 MG TABLET.SA (PROCARDIA XL 90 MG) PO ONE (11:00)
[2022-09-29 11:01] LABS: CALCIUM 8.4 mg/dL (8.4-11.0); CREATININE 7.28 mg/dL (0.55-1.30)
[2022-09-29] MEDS ORDERED: HYDR100T25 PO (13:11)
[2022-09-29 13:58] VITALS: BP_SYST 186
[2022-09-29] MEDS ORDERED: hydrALAZINE HCL 25 MG TABLET PO SCH (14:00)
[2022-09-29 16:24] VITALS: BP_SYST 150
[2022-09-29 16:33] VITALS: BP_SYST 150
--- NOTE | 2022-09-29 20:11 | NUR ---
PT DC HOME. PT RECEIVED ALL DC INSTRUCTIONS. PT HAS ALL BELONGS. PT IV REMOVED INTACT. PT ID BAND REMOVED. PT TAKEN HOME BY FAMILY MEMBER ED. PT TAKEN TO THE PARKING LOT VIA WHEELCHAIR. ALL NEEDS MEET AT THIS TIME.
[2022-09-29] MEDS ORDERED: cloNIDine HCL 0.2 MG TABLET PO SCH (21:00)
[2022-09-30] MEDS ORDERED: NIFEDIPINE 90 MG TABLET.SA (PROCARDIA XL 90 MG) PO SCH (09:00)
== END 2022-09-29 20:11 | disposition short-term general hospital (02) ==
LOC: SED 11:27 → SMU 14:43
PROVIDERS: ADMIT Specialist; ATTEND Specialist
DX: E87.5 Hyperkalemia (principal); Z20.822 Contact with and (suspected) exposure to COVID-19; E83.41 Hypermagnesemia; I12.0 Hypertensive chronic kidney disease with stage 5 chronic kidney disease or end stage renal disease; E11.22 Type 2 diabetes mellitus with diabetic chronic kidney disease; N18.6 End stage renal disease; E86.0 Dehydration; Z79.899 Other long term (current) drug therapy
CPT/HCPCS: 96361; 96374; 96375; 80053; 83880; 83735 ×2; 85025; 84484; 36415 ×2; 93005; 71045; 99285; 87426; 80048; 87081; J0610; J1644; J0360; J2405; G0378 ×2; 90935